=== PATIENT | male | born 2000 | race Caucasian/White ===

== ENCOUNTER 2023-07-12 17:52 | Emergency (ER) | payer OTHER ==
[2023-07-12] MEDS: Tetracaine HCl/PF 0.5% 4 ML Bottle EYERT ONE (18:05)
[2023-07-12] MEDS: Fluorescein 1 MG Ophth Strip EYERT ONE (18:06)
[2023-07-12] MEDS: Erythromycin Base 0.5% Ophth Oint 3.5 GM Tube EYERT ONE (18:15)
[2023-07-12] MEDS: Ibuprofen 600 MG Tab PO ONE (18:31)
== END 2023-07-12 18:40 | disposition home or self-care (01) ==
LOC: LB.ED 17:52
DX: S05.01XA Injury of conjunctiva and corneal abrasion without foreign body, right eye, initial encounter (principal); X58.XXXA Exposure to other specified factors, initial encounter
CPT/HCPCS: 99283; A9270-GY